=== PATIENT | male | born 1975 | race Asian ===

== ENCOUNTER 2023-01-18 02:07 | Day surgery (SDC) | payer SELFPAY ==
[2023-01-18] VITALS (8 sets, daily range): BP systolic 102–125; BP diastolic 55–85; PULSE 63–78; RESP 16; TEMP 36.1–36.5; O2SAT 94–97; BMI 27.4
--- NOTE | 2023-01-18 02:17 | ED.GENADULT ---
HPI - General Adult General Time Seen by Provider: 02:17 Date Seen: 01/18/23 Chief complaint: Laceration/Wound Stated complaint: had an accident with his toes Time Seen by Provider: 01/18/23 02:17 Source: patient, family, RN notes reviewed and old records reviewed Mode of arrival: ambulatory Limitations: no limitations History of Present Illness HPI narrative: 47-year-old male who comes in with a toe laceration. Patient says he his toe on something, unable to tell me exactly what happened. Injury to the right 2nd toe, denies any other injuries. Thinks his tetanus was 2 years ago. Related Data Allergies Allergy/AdvReac Type Severity Reaction Status Date / Time No Known Drug Allergies Allergy Verified 01/18/23 04:20 Exam Narrative: Exam Narrative: General: Well-developed and well-nourished, no acute distress Head: Atraumatic and normocephalic Eyes: Pupils are equal reactive, extraocular motions intact, conjunctiva clear ENT: External nose and ears are normal, posterior pharynx without erythema or exudate Neck: No midline cervical tenderness, full spontaneous range of motion the neck, trachea midline, no adenopathy Heart: Regular rate and rhythm no murmurs or thrills Lungs: Clear to auscultation bilaterally without wheezes or crackles Abdomen: Soft, nontender, nondistended with active bowel sounds Musculoskeletal: Laceration with tissue avulsion on the plantar surface of the 2nd toe on the right Neurologic: Awake, alert, and oriented x3, no gross focal neurologic deficits, cranial nerves intact as tested Psych: Mood and affect are appropriate Skin: No rashes Const: Vital Signs, click to edit/add: Vital Signs - 24 hr 01/18/23 02:16 01/18/23 04:00 Temperature 97.0 F L Pulse Rate [Left P ulse Oximeter] 63 70 Respiratory Rate 16 16 Blood Pressure [Ri ght Upper Arm] 125/83 108/79 Pulse Oximetry 96 96 Oxygen Delivery Me thod Room Air Room Air Course Course Hospital Course: Patient seen examined, prior records reviewed. Patient with a laceration on the plantar surface of the right 2nd toe. Unable to fully visualize due to clot. X-rays are ordered and initial digital block was performed with plan to clean and repair when patient gets back from x-ray. Digital block, right 2nd toe. Risks and benefits discussed with patient, verbal consent was obtained. Landmarks identified and a 27 gauge needle was introduced, 2 mL of lidocaine 2% injected on either side of the toe for total of 4 mL. Reevaluation(s) Time of Reevaluation #1: 02:44 Reevaluation #1: X-ray independently interpreted by me demonstrates some tiny radiopaque densities in the soft tissue but no definite acute fracture or dislocation. Wound was irrigated with 1 L of normal saline and scrubbed with wound cleanser. Small bits of dirt and debris were removed and wund scrubbed with gauze and wound cleanser until no visible dirt was left. The distal half of the distal phalanx is clearly visible in the wound and the overlying tissue has been avulsed. Will discuss with Orthopedics as this may need bony rongeur and debridement for closure. Will wrap saline soaked gauze Time of Reevaluation #2: 03:21 Reevaluation #2: Care discussed with alvin Chandler. agrees with plan for singly so caused, Orthopedics will see patient in the morning in the emergency department and make a plan for treatment from there. IV is placed Ancef is given. Time of Reevaluation #3: 07:27 Reevaluation #3: Care discussed with Dr. Monge, orthopedics. Patient to go to OR later this morning for washout and definitive repair. Vital Signs Vital signs: Initial Vital Signs Temperature 97.0 F L 01/18/23 02:16 Temperature Source Temporal Artery Scan 01/18/23 02:16 Pulse Rate 63 01/18/23 02:16 Pulse Rhythm Regular 01/18/23 02:16 Respiratory Rate 16 01/18/23 02:16 Blood Pressure 125/83 01/18/23 02:16 Blood Pressure Mean 97 01/18/23 02:16 Blood Pressure Position Semi-Fowlers 01/18/23 02:16 Pulse Oximetry 96 01/18/23 02:16 Oxygen Delivery Method Room Air 01/18/23 02:16 Vital Signs Temperature 97.0 F L 01/18/23 02:16 Pulse Rate 63 01/18/23 02:16 Respiratory Rate 16 01/18/23 02:16 Blood Pressure 125/83 01/18/23 02:16 Pulse Oximetry 96 01/18/23 02:16 Oxygen Delivery Method Room Air 01/18/23 02:16 Temperature 97.0 F L 01/18/23 02:16 Pulse Rate 70 01/18/23 04:00 Respiratory Rate 16 01/18/23 04:00 Blood Pressure 108/79 01/18/23 04:00 Pulse Oximetry 96 01/18/23 04:00 Oxygen Delivery Method Room Air 01/18/23 04:00 Discharge Plan Discharge Clinical Impression: Avulsion of toe, Soft tissue avulsion Patient Disposition: XFER to OR Follow Up/Referrals: Provider,Not a Local [Primary Care Provider] -
--- NOTE | 2023-01-18 02:28 | CRLHL7_ITS ---
For Patients: As a result of the Cures Act, medical imaging exams and procedure reports are released immediately into your electronic medical record. You may view this report before your referring provider. If you have questions, please contact your health care provider. INDICATION: Trauma to the 2nd toe. COMPARISON: None available. TECHNIQUE: The right 2nd toe is examined with AP, lateral, and oblique views. There has been avulsion of the soft tissues at the tip of the 2nd toe, with no sign of fracture of the tuft of the 2nd toe. There are 2 tiny radiopaque foreign bodies located along the medial aspect of the avulsion injury. There is no sign of fracture or dislocation elsewhere in the 2nd toe. The soft tissues are elsewhere normal in appearance without sign of radio-opaque foreign body or additional soft tissue injury. No degenerative disease is seen. IMPRESSION: Avulsion of the soft tissues at the tip of the 2nd toe with no sign of associated fracture Two tiny radiodense foreign bodies located along the medial aspect of the avulsion injury. Dictated by Prosper Preston MD @ 01/18/2023 2:55:58 AM (Electronically Signed)
[2023-01-18] MEDS: lidocaine HCL 2 % MULTIDOSE 20 ML VIAL INJECTION (02:30)
[2023-01-18] MEDS: TETANUS/DIPHTH/PERTUSSIS 0.5 ML SYRINGE IM (03:42)
[2023-01-18] MEDS: CEFAZOLIN 1 GM in 0.9 % SODIUM CHLORIDE Mini-bag 100 ML IVPB (03:42)
[2023-01-18] MEDS: ACETAMINOPHEN 325 MG TABLET 650 MG PO (06:53)
--- NOTE | 2023-01-18 06:53 | ED.NURSE ---
patient up to the bathroom. Patient requesting tylenol. Patient states that he remembers now that he closed his foot in a freezer door. notified.
--- NOTE | 2023-01-18 07:16 | ED.NURSE ---
Dr. Monge is in the room talking to patient and .
--- NOTE | 2023-01-18 08:12 | ED.NURSE ---
Patient brought to [facility] room 10. All belongings sent with patient. Report and paperwork given to ORALIA Elise.
--- NOTE | 2023-01-18 11:28 | W.ANESCHARGE ---
Anesthesia Charges Start Date/Time Anesthesia Start Date: 01/18/23 Anesthesia Start Time: 12:26 Stop Date/Time Anesthesia Stop Date: 01/18/23 Anesthesia Stop Time: 13:27 Summary Emergency: MDA
[2023-01-18] MEDS: CEFAZOLIN 2 GM INJ IVP (12:36)
[2023-01-18] MEDS: LIDOCAINE 1% MDV 10 ML INJECTION (12:47)
[2023-01-18] MEDS: BACITRACIN OINTMENT BULK TUBE 1 APPLIC TOPICAL (13:12)
--- NOTE | 2023-01-18 13:28 | W.ANESCHARGE ---
Anesthesia Charges Start Date/Time Anesthesia Start Date: 01/18/23 Anesthesia Start Time: 12:26 Stop Date/Time Anesthesia Stop Date: 01/18/23 Anesthesia Stop Time: 13:27 Summary Emergency: FORENSIC TECHNICIAN
[2023-01-18] MEDS: LACTATED RINGERS 1000 ML 1,000 ML 100 ML IV (13:35)
--- NOTE | 2023-01-18 14:12 | SUR.PHASEII ---
Pt tolerated ice water, apple juice, and toast. Patient verbalized readiness to be discharged and understanding of discharge instructions. Pt stated they have access to crutches at home.
--- NOTE | 2023-01-21 12:46 | P.ORCN_ITS ---
History of Present Illness HPI Date Seen: 01/18/23 Consult date: 01/18/23 Chief complaint: right foot 2nd toe incision and Excisional debride Narrative: Janet is a 47-year-old male. He reportedly came to the emergency department approximately 2:00 a.m. on 01/18/2023. I am seeing him at approximately 7:00 a.m. after I was just notified approximately 30 minutes ago about his issue. Reportedly he is intoxicated. He caught his right 2nd toe in a freezer door. H ad significant pain and obvious tissue loss about the 2nd toe. He presented [facility]. X-rays revealed no clear fracture, but physical exam showed significant soft tissue loss particular on the tip and plantar aspect of the 2nd toe. The tissue loss with significant with exposed distal phalanx. Orthopedics was consulted to assist with management. The patient provides most of the history. It is augmented by his , who is in the emergency room with the patient. [facility] Surgical History History of incision and drainage (01/18/23) ?Z98.890 - Other specified postprocedural states (ICD-10) Social History Smoking Status: Current every day smoker What tobacco products do you use: cigarettes Smoking packs per day: 0.5 Smoking cigarettes per day: 10.0 Years smoked: 20 Smoking pack-years: 10.00 How often do you have a drink containing alcohol: 2-4 times a month Alcohol type: beer How many standard drinks containing alcohol do you have on a typical day: 5 or 6 How often do you have six or more drinks on one occasion: Monthly AUDIT-C Alcohol total score: 6 Caffeine: Yes service: No Meds Home Medications and Allergies Allergies Allergy/AdvReac Type Severity Reaction Status Date / Time No Known Drug Allergies Allergy Unverified 01/19/23 08:44 Ortho Exam Narrative Exam Narrative: He is sleeping in emergency room bed at the time of my encounter. He awakens quickly. He shares a intelligently and is able to communicate clearly effectively today. Regarding the 2nd toe, there is full-thickness tissue loss including the 2nd toe tip and the plantar aspect back to the middle phalanx region. The skin loss and tissue loss is in a v-shaped pattern with the apex of the V near the base of the middle phalanx and widening towards the toe tip itself. The nail plate is intact in the dorsum of the toe appears intact. There is exposed distal phalanx that is both visible and palpable with no tissue overlying this. The subcutaneous fat surrounding this has also been compromised. The toe has some desiccation to the tissue as he has been here for multiple hours. There is active bleeding in the region that is slow at this time. The tissue/skin that is intact appears to have good capillary refill. There is no obvious dirt or other gross contamination visible. Results Diagnostic results Additional Comments: Three views the right 2nd toe from [facility] dated 01/18/2023 were ord ered by a different provider and reviewed by me. This shows no fractures but significant soft tissue loss is seen overlying the tip of the 2nd toe and the plantar aspect. It does look like the distal phalanx has no soft tissue on the plantar surface radiographically. The joint appears otherwise well aligned and without compromise. Assessment and Plan Assessment and plan (1) Soft tissue avulsion: Status: Acute Plan With the significant soft tissue avulsion from this right 2nd toe, and exposed distal phalanx, his risk for infection is significant. He has received IV Ancef and his tetanus has been updated here in the emergency department. I do think surgery is prudent to wash out the wound and to try to close the wound. My suspicion is we will not be able to mobilize enough tissue to cover the distal phalanx. I would strongly recommend a partial right 2nd toe amputation likely near the DIP joint or perhaps the middle portion of middle phalanx. As I communicate this recommendation to the patient, he will have none of it. He cannot wrap his head around the idea of a partial toe amputation. I communicated that a 2nd toe is slightly longer than his other digits and a partial toe amputation will expedite his wound healing and sealing, likely decrease his risk for infection, and for the need for future frequent follow-ups and wound checks and wound care. Beyond that, I think functionally he will have no noticeable change with pain, motion, or stability/function. However, again he does not approve of a partial toe amputation. He will approve of/consent to the right 2nd toe debridement and possible tissue mobilization for closure. Therefore, I think this is the very least that we can do to try to help minimize his risk for infection. We will plan to do this on 01/18/2023. He will remain NPO. Likely be under local MAC.
--- NOTE | 2023-01-21 12:53 | P.ORPRC_ITS ---
Procedure Note Date of procedure: 01/18/23 Procedure: PREOPERATIVE DIAGNOSIS: 1. Right 2nd toe soft tissue avulsion from the toe tips to the plantar surface (3 by 2 cm (6 centimeters sq region)) POSTOPERATIVE DIAGNOSIS: 1. Right 2Nd toe soft tissue avulsion from the toe tips to the plantar surface in a 6 sq cm region PROCEDURE: 1. Right 2nd toe excisional debridement of skin, subcutaneous tissue, and to the depth including bone. 2. Right 2nd toe rotational flap ( 3 sq cm) for attempted tissue coverage SURGEON: Kenny Staples MD. DIGITAL BUSINESS ANALYST: Vinicius Mendosa Pac - Of note, an financial services assistant was critical for this case to aid in patient positioning, tissue retraction, limb manipulation/positioning, and closure. ANESTHESIA: Local anesthetic (50:50 mixture of 2% lidocaine plain and 0.5% marcaine plain) plus MAC IMPLANTS: None TOURNIQUET: 30 minutes at 225 torr calf tourniquet COMPLICATIONS: None evident INDICATIONS: The patient is a pleasant 47-year-old male who sustained a right 2nd toe soft tissue avulsion injury after he caught his toe in a freezer door on 01/18/2023 while intoxicated. There is exposed distal phalanx bone without soft tissue coverage. Today surgery is to help decrease the risk for infection with irrigation debridement as well as attempted wound closure. DESCRIPTION OF PROCEDURE: Following a thorough discussion of risks, benefits, and alternatives consent was obtained and the operative extremity was marked. The patient was brought to the operating room and placed supine on the operating table. 2 g IV Ancef was administered within 1 hour incision preoperatively. Proper time-out was performed identifying proper patient, site, and procedure. The operative extremity was prepped and draped in the appropriate sterile fashion using ChloraPrep. The limb was exsanguinated and the tourniquet inflated. The wound was initially debrided of the desiccated unhealthy tissue with a combination of 15 blade scalp full, rongeur, and curette. This allowed us to excisionally debride tissue including skin, subcutaneous tissue, and bone ( some of the distal phalanx superficial surface). The nail plate was left in place. Soft tissue mobilization was attempted with tenotomy scissors on either side of the distal phalanx medially and laterally. This did not allow enough tissue mobilization. Therefore, a 3 sq cm rotational flap was created along the mid axial line of the 2nd toe towards the toe base. This was curved dorsally to help back cutting lost some tissue to be mobilized. Unfortunately, this was insufficient to cover the distal phalanx. However, this rotational flap did help reapproximate some of the tissue, but again unable to cover the distal ph alanx completely. Closure was performed with 4-0 nylon in interrupted fashion after thorough irrigation normal saline was performed. At this stage, the tourniquet was deflated and hemostasis achieved. Soft dressings were applied, and the patient was awoken/transferred to the recovery room in stable condition with hard sole postop shoe. PLAN: 1. Encourage elevation of the operative extremity. 2. Range of motion of the operative extremity/digits as tolerated. 3. Ibuprofen, acetaminophen and/or [[place]] as needed for pain. 4. Follow up with PA visit in 3-5 days for wound check further discussion of wound management. Again, in my opinion, I would recommend a partial toe amputation. I think function this would do fantastic and visually there would not be a significant change outside of loss of the nail plate. This would be something worth discussing further with the patient.
== END 2023-01-18 14:28 | disposition home or self-care (01) ==
LOC: ED 07:31 → SS 07:51
PROVIDERS: Emergency Provider Family Medicine; Visit Provider Orthopaedic Surgery Sports Medicine
PROC: (CPT 11044; principal; 2023-01-18 12:00)
DX: S91.104A Unspecified open wound of right lesser toe(s) without damage to nail, initial encounter (principal); S97.121A Crushing injury of right lesser toe(s), initial encounter; W23.0XXA Caught, crushed, jammed, or pinched between moving objects, initial encounter; Z23 Encounter for immunization
CPT/HCPCS: 11044; 14040; 01480; 11042; 73660; 90715; 99140; 99284; 99285; A9270; J0690; J1100; J2250; J2405; J2704; J3010; J3490; J7120

== ENCOUNTER 2023-01-27 09:55 | Day surgery (SDC) | payer SELFPAY ==
[2023-01-27] MEDS: LACTATED RINGERS 1000 ML 1,000 ML 100 ML IV (09:55)
[2023-01-27 10:17] VITALS: BP 134/84; PULSE 68; RESP 16; TEMP 36.9; O2SAT 98
[2023-01-27 10:22] VITALS: BMI 26.9
--- NOTE | 2023-01-27 11:58 | SUR.PREOP ---
PATIENT OPTED TO NOT HAVE THE TOE AMPUTATION DONE AFTER CONSULTING WITH DR. CAMPOS. AGUSTÍN FUENTES PUT ON A NEW DRESSING BEFORE DISCHARGE AND HAS REFERRED HIM TO THE WOUND CLINIC FOR FOLLOW-UP.
--- NOTE | 2023-01-27 12:28 | PM.ORPRC ---
Procedure Note Date of procedure: 01/27/23 Procedure: PREOPERATIVE DIAGNOSIS: Right foot 2nd toe partial amputation POSTOPERATIVE DIAGNOSIS: Right foot 2nd toe partial amputation NAME OF OPERATION: Dressing change SURGEON: Harsh Alexander MD FORESTRY HUNTER: Chacha Cunningham PA-C ANESTHESIA: None ESTIMATED BLOOD LOSS: 0 mL COMPLICATIONS: None SPECIMENS: None DRAINS: None PREOPERATIVE ANTIBIOTICS: None INDICATIONS: The patient is a 47-year-old with a history of a partial amputation of his right foot, 2nd toe last week. It was recommended to shorten the toe and primarily close the wound at that time. However, the patient was reticent to do so. In the interim, he has elected to proceed with that plan. He was scheduled to do so today. The dressing placed last week was discontinued. The wound is without signs of infection. It is granulating in nicely. There may be a 2 mm diameter area of bone exposed at the far distal aspect of the wound. After the patient inspected the wound, he feels like he would like to continue non operative treatment. Therefore, a new dressing was placed on the toe, today's case was canceled. He will follow up in the Ortho Clinic or wound clinic next week.
== END 2023-01-27 23:00 | disposition home or self-care (01) ==
PROVIDERS: Visit Provider Orthopaedic Surgery
DX: Z53.29 Procedure and treatment not carried out because of patient's decision for other reasons (principal); Z48.01 Encounter for change or removal of surgical wound dressing; Z89.421 Acquired absence of other right toe(s)
CPT/HCPCS: J2250; J3010; J7120